=== PATIENT | male | born 1990 | race Hispanic/Latino ===

== ENCOUNTER 2018-12-07 19:28 | Emergency (ER) | payer SELFPAY ==
[2018-12-07] MEDS ORDERED: MORPHINE IV ONE ×2 (19:53→22:53)
[2018-12-07] MEDS ORDERED: ZOFRAN IV ONE ×2 (19:53→22:54)
[2018-12-07] MEDS ORDERED: TORADOL IVP ONE (19:53)
--- NOTE | 2018-12-07 19:54 | Emergency Department Report ---
ED Abdominal Pain HPI - General Chief Complaint: Urogenital-Male Stated Complaint: BLOOD IN URINE Time Seen by Provider: 12/07/18 19:48 Source: patient, family Mode of arrival: Ambulatory Limitations: No Limitations - History of Present Illness Initial Comments: This is a 28-year-old male male here report that he has been in his urine since yesterday. Denies any clots. He said he had sharp abdominal pain to his left lower abdomen and some lower back pain. Reports some nausea without any vomiting. Denies any diarrhea. Denies any chest pain or shortness of breath. He reports that he is having pain with urination. Denies any fever or chills. He said he has a history of kidney stones in the past. Pain is 10 out of 10 to left lower abdomen rotated into his left back lower. He denies taking any medication. Patient denies any medical history in triage with helmeted he had history of kidney stone a long time ago. Denies any injuries. MD Complaint: abdominal pain, flank pain, other (blood in urine) Onset/Timin -: days(s) Location: LLQ Migration to: L flank Severity: severe Severity scale (0 -10): 10 Quality: sharp Consistency: constant Improves With: nothing Worsens With: nothing Context: other (unknown) Associated Symptoms: nausea, dysuria, hematuria. denies: vomiting, diarrhea, fever, chills, constipation, hematemesis, hematochezia, melena, anorexia, syncope Treatments Prior to Arrival: other (none) - Related Data Previous Rx's Medication Instructions Recorded Last Taken Type Acetaminophen/Codeine [Tylenol 1 tab PO Q6H PRN #10 tab 12/08/18 Unknown Rx /Codeine # 3 tab] Ibuprofen [Motrin] 600 mg PO Q8H PRN #12 tablet 12/08/18 Unknown Rx Sulfamethoxazole/Trimethoprim 1 each PO BID 10 Days #20 tablet 12/08/18 Unknown Rx [Bactrim DS TAB] Allergies Allergy/AdvReac Type Severity Reaction Status Date / Time No Known Allergies Allergy Verified 12/07/18 19:43 ED Review of Systems ROS: Stated complaint: BLOOD IN URINE Other details as noted in HPI Constitutional: denies: chills, fever ENT: denies: throat pain, congestion Respiratory: denies: cough, shortness of breath, wheezing Cardiovascular: denies: chest pain, palpitations, edema, syncope Gastrointestinal: abdominal pain, nausea. denies: vomiting, diarrhea, constipation, hematemesis, melena, hematochezia Genitourinary: dysuria, hematuria. denies: urgency, frequency, discharge, testicular pain, testicular mass Musculoskeletal: back pain (flank pain). denies: joint swelling, arthralgia, myalgia Skin: denies: rash Neurological: denies: headache, numbness, paresthesias, abnormal gait ED Past Medical Hx - Past Medical History Previous Medical History?: Yes Additional medical history: Kidney stone - Surgical History Past Surgical History?: Yes Additional Surgical History: AC joint. clavicle - Family History Family history: no significant - Social History Smoking Status: Current Every Day Smoker Substance Use Type: None - Medications Home Medications: Home Medications Medication Instructions Recorded Confirmed Last Taken Type Acetaminophen/Codeine [Tylenol 1 tab PO Q6H PRN #10 tab 12/08/18 Unknown Rx /Codeine # 3 tab] Ibuprofen [Motrin] 600 mg PO Q8H PRN #12 tablet 12/08/18 Unknown Rx Sulfamethoxazole/Trimethoprim 1 each PO BID 10 Days #20 tablet 12/08/18 Unknown Rx [Bactrim DS TAB] ED Physical Exam - General Limitations: No Limitations General appearance: alert, in no apparent distress - Head Head exam: Present: atraumatic, normocephalic, normal inspection - Eye Eye exam: Present: normal appearance, PERRL, EOMI Pupils: Present: normal accommodation - ENT ENT exam: Present: normal exam, normal orophraynx, mucous membranes moist - Neck Neck exam: Present: normal inspection, full ROM. Absent: tenderness, lymphadenopathy - Respiratory Respiratory exam: Present: normal lung sounds bilaterally. Absent: respiratory distress, chest wall tenderness - Cardiovascular Cardiovascular Exam: Present: normal rhythm, tachycardia, normal heart sounds - GI/Abdominal GI/Abdominal exam: Present: soft, tenderness (minimal tenderness to left lower quadrant of abdomen.), normal bowel sounds. Absent: distended, guarding, rebound, rigid, organomegaly, mass, bruit - Extremities Exam Extremities exam: Present: normal inspection, full ROM, normal capillary refill, other (No cce. + 2 pulses in all extremities, no neurovascular compromise). Absent: tenderness, pedal edema, joint swelling, calf tenderness - Back Exam Back exam: Present: normal inspection, full ROM, tenderness, CVA tenderness (L), other (ambulates without any difficulties). Absent: CVA tenderness (R), muscle spasm, paraspinal tenderness, vertebral tenderness, rash noted - Neurological Exam Neurological exam: Present: alert, oriented X3, normal gait - Psychiatric Psychiatric exam: Present: normal affect, normal mood - Skin Skin exam: Present: warm, dry, intact, normal color. Absent: rash ED Course Vital Signs 12/07/18 12/07/18 12/07/18 19:33 19:39 23:05 Temperature 98.1 F 98.1 F Pulse Rate 104 H 107 H Respiratory 18 20 20 Rate Blood Pressure 178/100 178/100 Blood Pressure [Left] O2 Sat by Pulse 98 98 Oximetry 12/08/18 12/08/18 00:10 00:32 Temperature 98.5 F Pulse Rate 92 H 74 Respiratory 20 Rate Blood Pressure Blood Pressure 146/93 [Left] O2 Sat by Pulse 98 Oximetry Vital Signs 12/07/18 12/07/18 12/07/18 19:33 19:39 23:05 Temperature 98.1 F 98.1 F Pulse Rate 104 H 107 H Respiratory 18 20 20 Rate Blood Pressure 178/100 178/100 O2 Sat by Pulse 98 98 Oximetry 12/08/18 00:10 Temperature Pulse Rate 92 H Respiratory Rate Blood Pressure O2 Sat by Pulse Oximetry Vital Signs 12/07/18 12/07/18 12/07/18 19:33 19:39 23:05 Temperature 98.1 F 98.1 F Pulse Rate 104 H 107 H Respiratory 18 20 20 Rate Blood Pressure 178/100 178/100 Blood Pressure [Left] O2 Sat by Pulse 98 98 Oximetry 12/08/18 12/08/18 00:10 00:32 Temperature 98.5 F Pulse Rate 92 H 74 Respiratory 20 Rate Blood Pressure Blood Pressure 146/93 [Left] O2 Sat by Pulse 98 Oximetry - Reevaluation(s) Reevaluation #1: 12/07/18 20:10 Patient given morphine 4 mg IV for flank and abdominal pain and Zofran 4 mg IV for nausea. Patient for CT scan of the abdomen and pelvis Without contrast due to blood. He said pain is better and he is able to tolerate oral liquids. Reevaluation #2: 12/07/18 23:12 Patient started on 1 L normal saline, still awaiting in CT scan results. He received a second dose of morphine 4 mg IV for recurrent pain and Zofran 4 mg IV to prevent nausea and his pain is better now. Reevaluation #3: 12/08/18 00:09 Patient is stable at the present pain is onto 3-10. I discussed a CT scan was with family voice understanding ED Medical Decision Making - Lab Data Result diagrams: 12/07/18 20:04 12/07/18 20:04 Lab Results 12/07/18 12/07/18 12/07/18 Range/Units 20:04 20:04 20:04 WBC 8.5 (4.5-11.0) K/mm3 RBC 4.75 (3.65-5.03) M/mm3 Hgb 14.5 (11.8-15.2) gm/dl Hct 42.6 (35.5-45.6) % MCV 90 (84-94) fl MCH 31 (28-32) pg MCHC 34 (32-34) % RDW 15.3 H (13.2-15.2) % Plt Count 268 (140-440) K/mm3 Lymph % (Auto) 34.6 (13.4-35.0) % [place] % (Auto) 6.5 (0.0-7.3) % Eos % (Auto) 2.0 (0.0-4.3) % Baso % (Auto) 0.5 (0.0-1.8) % Lymph # 2.9 (1.2-5.4) K/mm3 [place] # 0.5 (0.0-0.8) K/mm3 Eos # 0.2 (0.0-0.4) K/mm3 Baso # 0.0 (0.0-0.1) K/mm3 Seg Neutrophils % 56.4 (40.0-70.0) % Seg Neutrophils # 4.8 (1.8-7.7) K/mm3 Sodium 138 (137-145) mmol/L Potassium 4.8 (3.6-5.0) mmol/L Chloride 96.7 L (98-107) mmol/L Carbon Dioxide 28 (22-30) mmol/L Anion Gap 18 mmol/L BUN 18 (9-20) mg/dL Creatinine 0.8 (0.8-1.5) mg/dL Estimated GFR > 60 ml/min BUN/Creatinine Ratio 23 % Glucose 99 (75-100) mg/dL Calcium 10.1 (8.4-10.2) mg/dL Total Bilirubin 0.20 (0.1-1.2) mg/dL Direct Bilirubin < 0.2 (0-0.2) mg/dL Indirect Bilirubin 0.0 mg/dL AST 27 (5-40) units/L ALT 39 (7-56) units/L Alkaline Phosphatase 97 (35-129) units/L Total Protein 7.3 (6.3-8.2) g/dL Albumin 5.1 H (3.9-5) g/dL Albumin/Globulin Ratio 2.3 % Lipase 32 (13-60) units/L Urine Color (Yellow) Urine Turbidity (Clear) Urine pH (5.0-7.0) Ur Specific [place] (1.003-1.030) Urine Protein (Negative) mg/dL Urine Glucose (UA) (Negative) mg/dL Urine Ketones (Negative) mg/dL Urine Blood (Negative) Urine Nitrite (Negative) Urine Bilirubin (Negative) Urine Urobilinogen (<2.0) mg/dL Ur Leukocyte Esterase (Negative) Urine WBC (Auto) (0.0-6.0) /HPF Urine RBC (Auto) (0.0-6.0) /HPF 12/07/18 Range/Units 20:33 WBC (4.5-11.0) K/mm3 RBC (3.65-5.03) M/mm3 Hgb (11.8-15.2) gm/dl Hct (35.5-45.6) % MCV (84-94) fl MCH (28-32) pg MCHC (32-34) % RDW (13.2-15.2) % Plt Count (140-440) K/mm3 Lymph % (Auto) (13.4-35.0) % [place] % (Auto) (0.0-7.3) % Eos % (Auto) (0.0-4.3) % Baso % (Auto) (0.0-1.8) % Lymph # (1.2-5.4) K/mm3 [place] # (0.0-0.8) K/mm3 Eos # (0.0-0.4) K/mm3 Baso # (0.0-0.1) K/mm3 Seg Neutrophils % (40.0-70.0) % Seg Neutrophils # (1.8-7.7) K/mm3 Sodium (137-145) mmol/L Potassium (3.6-5.0) mmol/L Chloride (98-107) mmol/L Carbon Dioxide (22-30) mmol/L Anion Gap mmol/L BUN (9-20) mg/dL Creatinine (0.8-1.5) mg/dL Estimated GFR ml/min BUN/Creatinine Ratio % Glucose (75-100) mg/dL Calcium (8.4-10.2) mg/dL Total Bilirubin (0.1-1.2) mg/dL Direct Bilirubin (0-0.2) mg/dL Indirect Bilirubin mg/dL AST (5-40) units/L ALT (7-56) units/L Alkaline Phosphatase (35-129) units/L Total Protein (6.3-8.2) g/dL Albumin (3.9-5) g/dL Albumin/Globulin Ratio % Lipase (13-60) units/L Urine Color Yellow (Yellow) Urine Turbidity Clear (Clear) Urine pH 8.0 H (5.0-7.0) Ur Specific [place] 1.014 (1.003-1.030) Urine Protein <15 mg/dl (Negative) mg/dL Urine Glucose (UA) Neg (Negative) mg/dL Urine Ketones Neg (Negative) mg/dL Urine Blood Lg (Negative) Urine Nitrite Neg (Negative) Urine Bilirubin Neg (Negative) Urine Urobilinogen 2.0 (<2.0) mg/dL Ur Leukocyte Esterase Neg (Negative) Urine WBC (Auto) 2.0 (0.0-6.0) /HPF Urine RBC (Auto) > 182.0 (0.0-6.0) /HPF Urine culture sent - Radiology Data Radiology results: report reviewed CT scan of the abdomen and pelvis without contrast dictated by radiologist and reported homicidal. Please see report below Findings [facility] [address] [place] [address] Cat Scan Report Signed Patient: SHERLEY ENRIQUE MR#: [id number] : 1990 Acct:[id number] Age/Sex: 28 / M ADM Date: 12/07/18 Loc: ED Attending Dr: Ordering Physician: OLIVERIO LUGO Date of Service: 12/07/18 Procedure(s): CT abdomen pelvis wo con Accession Number(s): [id number] cc: OLIVERIO LUGO FINAL REPORT PROCEDURE: CT abdomen and pelvis without contrast. TECHNIQUE: Computerized axial tomography of the abdomen and pelvis was performed without intravenous contrast. This study is performed without intravascular contrast material and its sensitivity for abdominal and pelvic pathology, including neoplasms, inflammation, abscess, free fluid, thrombosis, arterial dissection and infarction, is reduced compared with a contrast enhanced study. HISTORY: Flank pain with abdominal pain/hematuria. COMPARISON: No prior studies are available for comparison. FINDINGS: The lung bases are clear. There are no pleural effusions. The heart size is normal. The liver, pancreas and spleen are grossly normal. The gallbladder is present. There is no biliary dilatation. The adrenal glands are not enlarged. Both kidneys appear normal in size and in configuration. The abdominal aorta has a normal caliber. There is no retroperitoneal adenopathy. The unopacified gastrointestinal tract is unremarkable. A normal appendix is visible. The bladder, seminal vesicles and prostate appear normal. 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 There is no spondylolisthesis. IMPRESSION: Bilateral spondylolysis of L5. Otherwise normal unenhanced studies of the abdomen and pelvis. Transcribed By: [facility] Dictated By: VALERIY SULLIVAN MD Electronically Authenticated By: VALERIY SULLIVAN MD Signed Date/Time: 12/07/182348 DD/ 50 TD/TT: 12/07/182350 - Medical Decision Making This is a 28-year-old male here reporting blood in urine and urine burning lower abdominal pain and flank pain. This is been going on since yesterday. Patient was evaluated and he has some left CVA tenderness with minimal tenderness left lower quadrant of her abdomen. CBC, CMP, lipase were negative findings. Urina lysis shows large amount of blood and greater than 182 of red blood cells. Patient had CT scan of the abdomen and pelvis without contrast and this shows Bilateral spondylolysis of L5. Otherwise normal unenhanced studies of the abdomen and pelvis. . CT scan suggests that there are no kidney problems, appendix is normal and all other organ visualized and normal. I discussed the results of CT scan and lab results the patient and told him that he had possible passed the stone this way had blood in his urine but I will have to cover him for urinary tract infection because he has blood in his urine would left lower quadrant pain, left CVA tenderness and complaints of urinary burning and urine culture will be sent. Patient was given 1 L normal saline and is able to tolerate oral fluids. He was given morphine 8 mg total in emergency room and Zofran 8 mg total. His nausea has been relieved his pain is better. Vital signs there was a febrile and patient discharged home in stable condition with prescription for Bactrim DS, Zofran, Motrin and Tylenol No. 3. I discussed with him he needs to follow up with his primary care doctor in 2-3 days and also urologist. I also told him that if his symptoms worsen to return to the emergency room otherwise follow-up with his primary care doctor. - Differential Diagnosis kidney stones, appendicitis, pyelonephritis, UTI, muscle strain, Critical care attestation.: If time is entered above; I have spent that time in minutes in the direct care of this critically ill patient, excluding procedure time. ED Disposition Clinical Impression: Dysuria, Left flank pain Hematuria Qualifiers: Hematuria type: other microscopic Qualified Code(s): R31.29 - Other microscopic hematuria Abdominal pain Qualifiers: Abdominal location: left lower quadrant Qualified Code(s): R10.32 - Left lower quadrant pain Disposition: DC-01 TO HOME OR SELFCARE Is pt being admited?: No Does the pt Need Aspirin: No Condition: Stable Instructions: Dysuria (ED), Abdominal Pain (ED), Flank Pain (ED) Additional Instructions: Please take antibiotic as prescribed. Take Motrin for mild to moderate pain and Tylenol 3 for severe pain. Please do not drive or operate heavy machinery while taken Tylenol 3 of this medication will cause drowsiness Increase your water into to at least 2-3 L of water daily. Take Zofran for nausea If his symptoms return, please return to the emergency room otherwise follow-up with primary care and urologist. Please see discharge instruction paperwork for details Prescriptions: Acetaminophen/Codeine [Tylenol /Codeine # 3 tab] 1 tab PO Q6H PRN #10 tab PRN Reason: severe pain Ibuprofen [Motrin] 600 mg PO Q8H PRN #12 tablet PRN Reason: Pain Sulfamethoxazole/Trimethoprim [Bactrim DS TAB] 1 each PO BID 10 Days #20 tablet Referrals: HILARIO EUBANKS MD [Primary Care Provider] - 2-3 Days [facility] [Outside] - 2-3 Days [facility] [Provider Group] - 2-3 Days Forms: Work/School Release Form(ED)
[2018-12-07] MEDS ORDERED: TORADOL ONE (20:15)
[2018-12-07 20:22] LABS: Basophils % (Auto) 0.5 % (0.0-1.8); Eosinophils # (Auto) 0.2 K/mm3 (0.0-0.4); Hematocrit 42.6 % (35.5-45.6); Hemoglobin 14.5 gm/dl (11.8-15.2); Lymphocytes # (Auto) 2.9 K/mm3 (1.2-5.4); Lymphocytes % (Auto) 34.6 % (13.4-35.0); Mean Corpuscular HGB Conc 34 % (32-34); Mean Corpuscular Volume 90 fl (84-94); Monocytes # (Auto) 0.5 K/mm3 (0.0-0.8); Monocytes % (Auto) 6.5 % (0.0-7.3); Platelet Count 268 K/mm3 (140-440); Red Blood Count 4.75 M/mm3 (3.65-5.03); Red Cell Distribution Width 15.3 % (13.2-15.2)
[2018-12-07] MEDS ORDERED: MILK OF MAGNESIA PO PRN (20:24)
[2018-12-07] MEDS ORDERED: TYLENOL PO PRN (20:24)
[2018-12-07] MEDS ORDERED: SODIUM CHLORIDE FLUSH SYRINGE 10 ML IV PRN (20:24)
[2018-12-07] MEDS ORDERED: ZOFRAN IV PRN (20:24)
--- NOTE | 2018-12-07 20:53 | History and Physical Report ---
History of Present Illness Date of examination: 12/07/18 Date of admission: 12/07/2018 History of present illness: Cough congestion x 2 days Medications and Allergies Allergies Allergy/AdvReac Type Severity Reaction Status Date / Time No Known Allergies Allergy Verified 12/07/18 19:43 Active Meds: Active Medications Acetaminophen (Tylenol) 650 mg PO Q4H PRN PRN Reason: Pain MILD(1-3)/Fever >100.5/KUMAR Sodium Chloride (Nacl 0.9% 1000 Ml) 1,000 mls @ 75 mls/hr IV DIRECT MICAH Magnesium Hydroxide (Milk Of Magnesia) 30 ml PO Q4H PRN PRN Reason: Constipation Ondansetron HCl (Zofran) 4 mg IV Q8H PRN PRN Reason: Nausea And Vomiting Sodium Chloride (Sodium Chloride Flush Syringe 10 Ml) 10 ml IV BID MICAH Sodium Chloride (Sodium Chloride Flush Syringe 10 Ml) 10 ml IV PRN PRN PRN Reason: LINE FLUSH Exam - Constitutional Vitals: Temp Pulse Resp BP Pulse Ox 98.1 F 107 H 20 178/100 98 12/07/18 19:39 12/07/18 19:39 12/07/18 19:39 12/07/18 19:39 12/07/18 19:39 Results - Labs CBC & Chem 7: 12/07/18 20:04 Labs: Laboratory Last Values WBC 8.5 K/mm3 (4.5-11.0) 12/07/18 20:04 RBC 4.75 M/mm3 (3.65-5.03) 12/07/18 20:04 Hgb 14.5 gm/dl (11.8-15.2) 12/07/18 20:04 Hct 42.6 % (35.5-45.6) 12/07/18 20:04 MCV 90 fl (84-94) 12/07/18 20:04 MCH 31 pg (28-32) 12/07/18 20:04 MCHC 34 % (32-34) 12/07/18 20:04 RDW 15.3 % (13.2-15.2) H 12/07/18 20:04 Plt Count 268 K/mm3 (140-440) 12/07/18 20:04 Lymph % (Auto) 34.6 % (13.4-35.0) 12/07/18 20:04 [place] % (Auto) 6.5 % (0.0-7.3) 12/07/18 20:04 Eos % (Auto) 2.0 % (0.0-4.3) 12/07/18 20:04 Baso % (Auto) 0.5 % (0.0-1.8) 12/07/18 20:04 Lymph # 2.9 K/mm3 (1.2-5.4) 12/07/18 20:04 [place] # 0.5 K/mm3 (0.0-0.8) 12/07/18 20:04 Eos # 0.2 K/mm3 (0.0-0.4) 12/07/18 20:04 Baso # 0.0 K/mm3 (0.0-0.1) 12/07/18 20:04 Seg Neutrophils % 56.4 % (40.0-70.0) 12/07/18 20:04 Seg Neutrophils # 4.8 K/mm3 (1.8-7.7) 12/07/18 20:04
[2018-12-07] MEDS ORDERED: NACL 0.9% 1000 ML 1,000 ML IV SCH (21:00)
[2018-12-07 21:02] LABS: Bilirubin,Urine NEG (Negative); Blood,Urine LG (Negative); Color,Urine Yellow (Yellow); Protein,Urine <15 mg/dL mg/dL (Negative)
[2018-12-07 21:03] LABS: RBC,Urine > 182.0 /HPF (0.0-6.0)
[2018-12-07 21:11] LABS: BUN/Creatinine Ratio 23; Blood Urea Nitrogen 18 mg/dL (9-20); Calcium 10.1 mg/dL (8.4-10.2); Hemolysis Index 8
[2018-12-07 21:15] LABS: Alanine Aminotransferase 39 units/L (7-56); Albumin 5.1 g/dL (3.9-5)
[2018-12-07 21:17] LABS: Bilirubin,Direct < 0.2 mg/dL (0-0.2)
[2018-12-07] MEDS ORDERED: NACL 0.9% 1000 ML 1,000 ML ONE (21:50)
[2018-12-07] MEDS ORDERED: SODIUM CHLORIDE FLUSH SYRINGE 10 ML IV SCH (22:00)
[2018-12-07] MEDS ORDERED: MORPHINE ONE (22:55)
[2018-12-07] MEDS ORDERED: ZOFRAN ONE (22:55)
[2018-12-07] MEDS ORDERED: BENADRYL ONE (22:56)
--- NOTE | 2018-12-07 23:49 | Cat Scan Report ---
FINAL REPORT PROCEDURE: CT abdomen and pelvis without contrast. TECHNIQUE: Computerized axial tomography of the abdomen and pelvis was performed without intravenous contrast. This study is performed without intravascular contrast material and its sensitivity for ab dominal and pelvic pathology, including neoplasms, inflammation, abscess, free fluid, thrombosis, art erial dissection and infarction, is reduced compared with a contrast enhanced study. HISTORY: Flank pain with abdominal pain/hematuria. COMPARISON: No prior studies are available for comparison. FINDINGS: The lung bases are clear. There are no pleural effusions. The heart size is normal. The liver, pancre as and spleen are grossly normal. The gallbladder is present. There is no biliary dilatation. The adr enal glands are not enlarged. Both kidneys appear normal in size and in configuration. The abdominal aorta has a normal caliber. There is no retroperitoneal adenopathy. The unopacified gastrointestinal tract is unremarkable. A normal appendix is visible. The bladder, seminal vesicles and prostate appea r normal. 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 There is no spondylolisthesis. IMPRESSION: Bilateral spondylolysis of L5. Otherwise normal unenhanced studies of the abdomen and pelvis.
[2018-12-08 00:33] VITALS: BP 146/93
== END 2018-12-08 00:40 | disposition home or self-care (01) ==
LOC: ED 19:28 → 4A 20:25 → UNDOADMIN 20:25 → 4A 21:34 → ED 12-08 00:40
DX: R31.9 Hematuria, unspecified (principal); R30.0 Dysuria; R10.32 Left lower quadrant pain; F17.200 Nicotine dependence, unspecified, uncomplicated; Z87.442 Personal history of urinary calculi
CPT/HCPCS: 36415; 74176; 80048; 80076; 81001; 83690; 85025; 87086; 96374; 96375; 96376; 99284; J1885; J2270; J2405; J7030; J1200